=== PATIENT | male | born 1960 | race Caucasian/White ===

== ENCOUNTER → 2025-06-25 | Outpatient (CLI) | payer OTHER, SELFPAY ==
--- NOTE | 2025-06-25 07:51 | AAAS_ITS ---
Reason For Study Reason For Study: Nicotine Dependence, AAA Screening Aorta Measurements Aorta Doppler Measurements Proximal aorta measures2.71cm x 2.62cm. in cross-sectional Peak systolic flow velocities within the proximal aorta axis. measure 89 cm/sec. Proximal aorta measures2.16cm. in longitudinal axis. Peak systolic flow velocities within the mid aorta measure Mid aorta measures2.12cm x 2.08cm. in cross-sectional axis. 50 cm/sec. Mid aorta measures2.25cm. in longitudinal axis. Peak systolic flow velocities within the distal aorta Distal aorta measures1.59cm x 1.69cm. in cross-sectional measure 72 cm/sec. axis. Distal aorta measures1.43cm. in longitudinal axis. Left Iliac Artery Left iliac artery measures 0.91cm x 1.07 cm. in the cross-sectional axis. Left iliac artery measures 0.85 cm. in the longitudinal axis. Peak systolic velocity in the left iliac artery measures 233 cm/sec. Right Iliac Artery Right iliac artery measures 0.71cm x 0.71 cm. in the cross-sectional axis. Right iliac artery measures 0.59 cm. in the longitudinal axis. Peak systolic velocity in the right iliac artery measures 109 cm/sec. Procedure Aorta IVC Iliac vasculature or bypass grafts 95007. Exam performed in department. VL/AAA Screening Interpretation Summary Aorta patent, ectasia to 2.71 cm Right iliac artery patent, normal caliber. Left iliac patent with >50% stenosis, normal caliber. Ordering Physician: Rei Dia Referring Physician: Rei Dia Performed By: Ashtyn Martinez, MIAN, RVT
== END | disposition home or self-care (01) ==
LOC: CVS 07:46
PROVIDERS: PCP Family Medicine; Referring Provider Family Medicine; Visit Provider Family Medicine
DX: F17.210 Nicotine dependence, cigarettes, uncomplicated (principal)
CPT/HCPCS: 76706

== ENCOUNTER → 2025-06-29 | Outpatient (CLI) | payer OTHER, SELFPAY ==
--- NOTE | 2025-06-29 08:19 | CT_ITS ---
PROCEDURE: LOW DOSE CT LUNG SCREENING 06/29/2025 REASON FOR EXAM: CIGARETTE NICOTINE DEPENDENCE TECHNIQUE: Procedure Code: [id number] Modality: CT Procedure: LOW DOSE CT LUNG SCREENING Coronal and Sagittal reconstruction series were provided. One or more dose reduction techniques were used (e.g., Automated exposure control, adjustment of the mA and/or kV according to patient size, use of iterative reconstruction technique). REFERENCE LINK: [employer] Lung-RADS RADIATION DOSE SUMMARY: DLP: 87.31 mGycm COMPARISON: None available. FINDINGS: PULMONARY NODULES: (Only nodules >3mm are reported) Nodules described below are on series 2 unless otherwise specified. Pulmonary Nodules: No suspicious pulmonary nodules. There is a ill-defined density in the inferior right upper lobe (image 131). Hardware:None. Lymph Nodes:No lymphadenopathy. Heart and Vasculature:The heart is normal in size. Trace pericardial effusion.The thoracic aorta is mildly dilated measuring up to 4.1 cm. The main pulmonary artery is normal caliber. Scattered atherosclerotic calcification in the thoracic aorta. Coronary Artery Calcifications: There are coronary artery calcifications. Lungs and Airways: Centrilobular emphysema predominantly affecting the upper lobes. Mild dependent atelectasis. Pleura:No pneumothorax or pleural effusion. Upper Abdomen:Atherosclerotic calcification of the abdominal aorta. Otherwise unremarkable. Bones:No aggressive osseous lesion. Degenerative changes of the thoracic spine. CT/Low Dose CT Lung Screening IMPRESSION: Ill-defined density in the inferior right upper lobe which may be inflammatory or infectious in etiology. Coronary artery calcification (CAC) is present. Lung-RADS Category: 0 INFLAMMATORY-INCOMPLETE. FINDINGS SUGGESTIVE OF AN INFLAM MATORY OR INFECTIOUS PROCESS. RECOMMEND 1-3 MONTH LDCT. Other Significant Findings: Pulmonary emphysema. Mildly dilated ascending thor acic aorta measuring up to 4.1 cm. Reading Location: [id number]
== END | disposition home or self-care (01) ==
LOC: CT 08:18
PROVIDERS: PCP Family Medicine; Referring Provider Family Medicine; Visit Provider Family Medicine
DX: F17.210 Nicotine dependence, cigarettes, uncomplicated (principal)
CPT/HCPCS: 71271